=== PATIENT | female | born 1965 | race Caucasian/White ===

== ENCOUNTER 2017-01-30 17:52 | Emergency (ER) | payer OTHER ==
[~2017-01-30] VITALS: Ht 157.5 cm; Wt 81.3 kg
[~2017-01-30 17:52] MED LIST: CRESTOR20 MG PO; ERGOCALCIF50000 UNIT PO; MILK OF MAGN PO; MONTELUKAST SOD10 MG PO; NADOLOL20 MG PO; NAPROXEN500 MG PO; PREDNISONE20 MG PO; SINGULAIR10 MG PO
[2017-01-30 18:27] LABS: HEMATOCRIT 43.6 % (36.0-46.0); MCH 31.3 PG (29.0-34.0); MCHC 34.2 G/DL (30.0-36.0); MCV 91.6 FL (83-99); MEAN PLAT.VOLUME 10.7 uM^3 (9.5-12.4); PLATELET COUNT 185 K/uL (156-360); RBC DIS.WIDTH-CV 13.7 % (11.8-14.6); RED BLOOD COUNT 4.76 M/uL (3.80-5.20); WHITE BLOOD COUNT 10.1 K/uL (4.1-10.2)
[2017-01-30 18:33] LABS: CHLORIDE 108 mEq/L (99-109); POTASSIUM 4.4 mEq/L (3.7-5.4); SODIUM 144 mEq/L (136-147)
[2017-01-30 18:34] LABS: GLUCOSE 121 mg/dL (70-99)
[2017-01-30 18:36] LABS: ANION GAP 12 MEQ/L (2-14)
[2017-01-30 18:38] LABS: GFR ESTIMATE (CALCULATED) > 59 mL/min/
[2017-01-30 18:39] LABS: UREA NITROGEN (BUN) 10 mg/dL (9-23)
[2017-01-30 19:08] LABS: ADD MIUA? NO; BILIRUBIN NEGATIVE; BLOOD NEGATIVE; COLOR STRAW ((YELLOW)); GLUCOSE (STRIP) NEGATIVE; KETONES NEGATIVE; LEUKOCYTES NEGATIVE; NITRITE NEGATIVE; PROTEIN (STRIP) NEGATIVE; SPECIFIC GRAVITY 1.005 (1.000-1.030); UCUL ADDED? NO; UROBILINOGEN 0.2 MG/DL (0.2-1.0)
[2017-01-30 20:10] LABS: TOTAL BILIRUBIN 0.3 mg/dL (0.0-1.0)
[2017-01-30 20:11] LABS: ALKALINE PHOSPHATASE 69 IU/L (3-129)
[2017-01-30 20:13] LABS: DIRECT BILIRUBIN 0.1 mg/dL (0.0-0.3)
[2017-01-30 20:14] LABS: LIPASE 70 U/L (1.0-51.0)
[2017-01-30] MEDS ORDERED: NORCO 7.5/321 TABLET PO (22:39)
[2017-01-30] MEDS ORDERED: MOTRIN800 MG PO (22:39)
[2017-01-30] MEDS ORDERED: ZOFRAN ODT4 MG PO (22:39)
[2017-01-30 22:55] VITALS: BP 152/65
== END 2017-01-30 22:55 | disposition home or self-care (01) ==
LOC: EME 17:52
DX: M96.842 Postprocedural seroma of a musculoskeletal structure following a musculoskeletal system procedure (principal); R10.9 Unspecified abdominal pain; R11.0 Nausea; J45.909 Unspecified asthma, uncomplicated; I10 Essential (primary) hypertension; Z87.442 Personal history of urinary calculi; F17.200 Nicotine dependence, unspecified, uncomplicated
CPT/HCPCS: 74176; 80048; 80076; 81003; 83690; 85027; 99281; 99284; J1885